=== PATIENT | female | born 1970 | race Caucasian/White ===

== ENCOUNTER 2019-05-05 05:36 | Emergency (ER) | payer OTHER ==
[~2019-05-05] VITALS: Ht 162.6 cm; Wt 77.5 kg
[~2019-05-05 05:36] MED LIST: HC1C30 TOP; MEDR10TA2 PO; PRED20TA PO
[2019-05-05 05:39] VITALS: Ht 162.6 cm; Wt 77.5 kg
[2019-05-05] MEDS ORDERED: SOD CHLORIDE 0.9% 1,000 ML IV ONE (06:30)
[2019-05-05 08:10] VITALS: BP 127/84; PULSE 59; RESP 19
== END 2019-05-05 08:12 | disposition home or self-care (01) ==
LOC: FTE 05:36
DX: N93.9 Abnormal uterine and vaginal bleeding, unspecified (principal)
CPT/HCPCS: 76830; 76856; 80053; 81001; 81025; 82150; 83690; 85025; 85610; 85730; 86850; 86900; 86901; 87086; 96360; J7030; Z7502